=== PATIENT | male | born 1995 | race American Indian/Alaskan Native ===

== ENCOUNTER 2017-06-03 23:30 | Emergency (ER) | payer OTHER ==
[2017-06-03 23:39] VITALS: PULSE 62; RESP 16; TEMP 98; O2SAT 100
[2017-06-04] MEDS ORDERED: Simethicone 80 mg Chewtab PO STA (00:02)
--- NOTE | 2017-06-04 00:41 | ED PDOC ---
HPI: Chest Pain Time Seen by Provider: 06/03/17 23:48 Chief Complaint (Nursing): Chest Pain History Per: Patient History/Exam Limitations: no limitations Onset/Duration Of Symptoms: Days Current Symptoms Are (Timing): Still Present Context: Food Quality: Tightness Additional Complaint(s): Patient with no PMHx presenting with chest pain, "Gas pains", states he has a grandfather with HOCM, has been seen by water control station engineer before and cleared, states he feels like he has to belch but is unable to, feels as though he has a gas bubble underneath his diaphragm. Pain is nonradiating, nonexertional, no sweating, no cough/fevers/chills. +Smoker Past Medical History Reviewed: Historical Data, Nursing Documentation, Vital Signs Vital Signs: Last Vital Signs Temp 98.0 F 06/03/17 23:37 Pulse 62 06/03/17 23:37 Resp 16 06/03/17 23:37 BP 171/91 H 06/03/17 23:37 Pulse Ox 100 06/04/17 00:43 - Family History Family History: States: CAD (HOCM in Grandfather) - Home Medications Home Medications: Ambulatory Orders Medication Instructions Recorded Simethicone [Gas Relief] 80 mg PO BID PRN #30 ctb 06/04/17 - Allergies Allergies/Adverse Reactions: Allergies Allergy/AdvReac Type Severity Reaction Status Date / Time No Known Allergies Allergy Verified 06/03/17 23:37 Review of Systems ROS Statement: Except As Marked, All Systems Reviewed And Found Negative Cardiovascular: Positive for: Chest Pain Physical Exam - Reviewed Nursing Documentation Reviewed: Yes Vital Signs Reviewed: Yes - Physical Exam Appears: Positive for: Well, Non-toxic, No Acute Distress Head Exam: Positive for: ATRAUMATIC, NORMAL INSPECTION, NORMOCEPHALIC Skin: Positive for: Normal Color, Warm, DRY Eye Exam: Positive for: EOMI, Normal appearance, PERRL ENT: Positive for: Normal ENT Inspection Neck: Positive for: Normal, Painless ROM Cardiovascular/Chest: Positive for: Regular Rate, Rhythm Respiratory: Positive for: CNT, Normal Breath Sounds Gastrointestinal/Abdominal: Positive for: Normal Exam, Soft Back: Positive for: Normal Inspection Extremity: Positive for: Normal ROM Neurologic/Psych: Positive for: Alert, Oriented - ECG ECG Rhythm: Positive for: Normal QRS, Normal ST Segment O2 Sat by Pulse Oximetry: 100 Medical Decision Making Medical Decision Makin A/P: No PMHx presenting with chest pain, gas pain -EKG normal, vitals stable, patietn well appearing -presentation very unlikely cardiac -will get CXR to evaluate heart borders -will give simethicone for relief 130 -CXR negative -Patient is feeling much better -Advised to stop smoking -Return precautions given Disposition - Clinical Impression Clinical Impression: Shortness of breath, Gas pain - Disposition Referrals: [facility] [place] [Outside] Disposition: Routine/Home Disposition Time: 01:45 Condition: IMPROVED Prescriptions: Simethicone [Gas Relief] 80 mg PO BID PRN #30 ctb PRN Reason: bloating Instructions: Shortness of Breath (Dyspnea), Gas and Bloating Forms: [facility] ([place])
[2017-06-04 02:00] VITALS: BP 132/86
--- NOTE | 2017-06-04 09:28 | RAD ---
HISTORY: chest pain COMPARISON: No prior. TECHNIQUE: Chest PA and lateral FINDINGS: LUNGS: No active pulmonary disease. PLEURA: No significant pleural effusion identified. No pneumothorax apparent. CARDIOVASCULAR: Normal. OSSEOUS STRUCTURES: No significant abnormalities. VISUALIZED UPPER ABDOMEN: Normal. OTHER FINDINGS: None. IMPRESSION: No active disease.
== END 2017-06-04 01:57 | disposition home or self-care (01) ==
LOC: H.ER 23:30
DX: R06.02 Shortness of breath (principal); R07.89 Other chest pain